=== PATIENT | female | born 1980 | race African-American/Black ===

== ENCOUNTER 2023-05-04 23:02 | Emergency (ER) | payer BC ==
[2023-05-04] MEDS ORDERED: Tetracaine 0.5% PF 4 ML BOT ONE (23:24)
[2023-05-04] MEDS ORDERED: Fluorescein Opthalmic Strip ONE (23:24)
[2023-05-05] MEDS ORDERED: Erythromycin Base 0.5% Ophth Oint 3.5 gm Tube ONE (00:44)
== END 2023-05-05 01:01 | disposition home or self-care (01) ==
LOC: MADERS 23:02
DX: H10.9 Unspecified conjunctivitis (principal)
CPT/HCPCS: 99283